=== PATIENT | female | born 1985 | race Caucasian/White ===

== ENCOUNTER 2019-11-24 11:06 | Emergency (ER) | payer OTHER ==
[~2019-11-24] VITALS: Ht 157.5 cm; Wt 52.6 kg
[~2019-11-24 11:06] MED LIST: ALBU90I INH; ALBU90OI INH; AMOX500 PO; Bactrim Ds Tab1 EACH PO; CEPH500 PO; CLINDAMYCIN 150 MG; CYCL10 PO; Cipro500 MG PO; DIAZ5 PO; DIPH50 PO; ERYT1OIN RIGHTEYE; HYDACE5; HYDACE5 PO; HYDACE7.5; LAMO25; LEVSOD50; LEVSOD50 PO; LIDO2L MM; LIDO2L PO; METPRE4DP PO; Monodox100 MG PO; Norco 5-325 Ta1 EACH PO; PENVK500 PO; PRED20 PO; PROACE100 PO; PROM25 PO; PROP50; RANI150 PO; RXCYCL10 PO; RXHYD5325 PO; RXHYDACE PO; SPACE CHAMBER1 EACH MC; Synthroid150 MCG PO; [UNRECOGNIZED DRUG - OTHER]
[2019-11-24] MEDS ORDERED: Flonase 0.05% N16 GM (12:30)
[2019-11-24] MEDS ORDERED: CEFD300 PO (12:30)
[2019-11-24] MEDS ORDERED: Mucinex1200 MG PO (12:30)
== END 2019-11-24 12:42 | disposition home or self-care (01) ==
LOC: ER 11:06
DX: H65.93 Unspecified nonsuppurative otitis media, bilateral (principal); E05.00 Thyrotoxicosis with diffuse goiter without thyrotoxic crisis or storm; F17.200 Nicotine dependence, unspecified, uncomplicated; Z88.0 Allergy status to penicillin; Z88.6 Allergy status to analgesic agent; Z79.899 Other long term (current) drug therapy
CPT/HCPCS: 99282

== ENCOUNTER 2021-02-02 22:17 | Emergency (ER) | payer OTHER ==
[~2021-02-02] VITALS: Ht 157.5 cm; Wt 52.6 kg
[~2021-02-02 22:17] MED LIST changes: +CEFD300 PO; +Flonase 0.05% N16 GM; +Mucinex1200 MG PO
== END 2021-02-03 03:07 | disposition left against medical advice (07) ==
LOC: ER 22:17
DX: Z53.21 Procedure and treatment not carried out due to patient leaving prior to being seen by health care provider (principal)

== ENCOUNTER 2024-07-12 11:23 | Emergency (ER) | payer OTHER ==
[~2024-07-12] VITALS: Ht 160 cm; Wt 59.9 kg
[~2024-07-12 11:23] MED LIST changes: +CLIN150 PO; +Ultram50 MG PO; +Voltaren100 GM TOP
[2024-07-12 12:08] VITALS: BP 137/110
[2024-07-12] MEDS ORDERED: Erythromycin 0.5% Opth Oint 3.5 gm LEFTEYE ONE (12:10)
== END 2024-07-12 12:28 | disposition home or self-care (01) ==
LOC: ER 11:23
DX: H10.9 Unspecified conjunctivitis (principal); F17.200 Nicotine dependence, unspecified, uncomplicated; Z79.51 Long term (current) use of inhaled steroids; Z79.899 Other long term (current) drug therapy; Z88.0 Allergy status to penicillin; Z88.6 Allergy status to analgesic agent
CPT/HCPCS: 99282; A9270